=== PATIENT | female | born 1995 | race Caucasian/White ===

== ENCOUNTER 2018-02-11 00:57 | Outpatient (CLI) | END 2018-02-11 02:50 | disposition home or self-care (01) ==

== ENCOUNTER 2018-02-24 09:57 | Outpatient (CLI) | END 2018-02-24 12:40 | disposition home or self-care (01) ==

== ENCOUNTER 2018-02-25 03:00 | Inpatient (IN) | END 2018-03-01 14:45 | disposition home or self-care (01) | DRG 807 ==